=== PATIENT | male | born 1985 | race Caucasian/White ===

== ENCOUNTER → 2022-12-03 | Outpatient (CLI) | payer BC ==
[~2022-12-03] MED LIST: AUGMENTIN 875875 MG PO; IBU-8800 MG PO; LEXAPRO20 MG PO; MOTRIN800 MG PO; NORCO 325 MG-51 TAB PO; NORFLEX100 MG PO
== END | disposition home or self-care (01) ==
LOC: RAD 11:40
PROVIDERS: ATTEND Nurse Practitioner
DX: M25.551 Pain in right hip (principal); M25.552 Pain in left hip; M54.50 Low back pain, unspecified